=== PATIENT | male | born 1990 | race Caucasian/White ===

== ENCOUNTER 2019-10-07 09:19 | Emergency (ER) | payer MEDICAID ==
[~2019-10-07] VITALS: Ht 172.7 cm; Wt 81.6 kg
--- NOTE | 2019-10-07 09:33 | NUR ---
Patient ambulated to bed 8. RN evaluating patient at bedside.
--- NOTE | 2019-10-07 09:35 | NUR ---
29 y/o M presents to ER c/o mid back pain since last night. Pt denies trauma or injury. Per pt it hurts with any sudden movement. Pain level 5/10, radiating to ribs. Pt admits to smoking marijuana for pain relief. A&O x4. Respirations even and unlabored. Pt sitting in chair at bedside. Waiting for ERMD to evaluate pt. Allergies: NKA Med hx: none
[2019-10-07 09:36] VITALS: BP 160/93
--- NOTE | 2019-10-07 10:06 | NUR ---
RAD taking pt to xray via wheelchair
--- NOTE | 2019-10-07 10:29 | NUR ---
Dr. Freed is evaluating the patient at bedside.
[2019-10-07 10:33] VITALS: BP 160/93
--- NOTE | 2019-10-07 10:33 | NUR ---
Patient discharged with v/s stable. Written and verbal after care instructions given and explained. Patient alert, oriented and verbalized understanding of instructions. Ambulatory with steady gait. All questions addressed prior to discharge. ID band removed. Patient advised to follow up with PMD. Rx of NAPROSYN given. Patient educated on indication of medication including possible reaction and side effects. Opportunity to ask questions provided and answered. D/C BY DR ROBB
== END 2019-10-07 09:33 | disposition home or self-care (01) ==
LOC: MED 09:19
DX: S13.4XXA Sprain of ligaments of cervical spine, initial encounter (principal); F12.10 Cannabis abuse, uncomplicated; Z71.6 Tobacco abuse counseling; X58.XXXA Exposure to other specified factors, initial encounter; Y93.72 Activity, wrestling; Y92.89 Other specified places as the place of occurrence of the external cause; Y99.8 Other external cause status
CPT/HCPCS: 72110; 99283

== ENCOUNTER 2020-03-18 01:13 | Emergency (ER) | payer MEDICAID, OTHER ==
[~2020-03-18] VITALS: Ht 172.7 cm; Wt 77.1 kg
--- NOTE | 2020-03-18 01:30 | NUR ---
PT NOT IN WAITING AREA
--- NOTE | 2020-03-18 01:40 | NUR ---
CALLED PT AND NO ANSWER
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
[2020-03-18 02:20] VITALS: BP 150/84
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
--- NOTE | 2020-03-18 03:05 | NUR ---
PT TAKEN TO [facility]
--- NOTE | 2020-03-18 03:12 | NUR ---
DR. CHAPIN AT BEDSIDE FOR EVALUATION.
--- NOTE | 2020-03-18 03:47 | NUR ---
PROVIDED PT WITH SHOULDER IMMOBILIZER AND PLACED PT IN POSITION OF COMFORT WITHOUT INCIDENT.
[2020-03-18 03:48] VITALS: BP 150/84
--- NOTE | 2020-03-18 03:48 | NUR ---
DPatient discharged with v/s stable. Written and verbal after care instructions given and explained. Patient alert, oriented and verbalized understanding of instructions. Ambulatory with steady gait. All questions addressed prior to discharge. ID band removed. Patient advised to follow up with PMD. Rx of NAPROSYN given. Patient educated on indication of medication including possible reaction and side effects. Opportunity to ask questions provided and answered.
== END 2020-03-18 03:48 | disposition home or self-care (01) ==
LOC: MED 01:13
DX: S43.401A Unspecified sprain of right shoulder joint, initial encounter (principal); I10 Essential (primary) hypertension; X58.XXXA Exposure to other specified factors, initial encounter; Y93.89 Activity, other specified; Y92.89 Other specified places as the place of occurrence of the external cause; Y99.8 Other external cause status
CPT/HCPCS: 73030; 99283